=== PATIENT | female | born 1935 | race Caucasian/White ===

== ENCOUNTER 2016-10-21 08:44 | Inpatient (IN) | payer MEDICARE, OTHER ==
[~2016-10-21] VITALS: Ht 172.7 cm; Wt 67.7 kg
--- NOTE | ~2016-10-21 | EKG ---
[place], [place] ELECTROCARDIOGRAM REPORT NAME: NATALIYA DAVALOS UNIT #: [id number] ROOM: 421 DOCTOR: RAFY CONTRERAS MD BIRTHDATE: [birth year] DOS: 10/21/2016 TIME: 09:13 RATE AND RHYTHM: Paced rhythm at 70 beats per minute, TX interval 158 milliseconds, QRS duration 142 milliseconds, corrected QT interval 462 milliseconds, QRS axis -21. IMPRESSION: It is a paced rhythm. No further interpretation. RAFY CONTRERAS MD CM:EKGRPT:ELECTROCARDIOGRAM REPORT 1007 1020 RAFY CONTRERAS MD
--- NOTE | ~2016-10-21 | CON ---
[place], [place] REPORT OF CONSULTATION NAME: NATALIYA DAVALOS UNIT #: [id number] ROOM: 421 DOCTOR: IRENE KEENE [facility],JOSELU[facility] BIRTHDATE: [birth year] DOS: 10/22/2016 IMPRESSION: History of syncope. Pacemaker function is good, and it could be related to the hypotension either orthostatic or otherwise. No extreme tachybradycardia noted and pacemaker function is good and reported The tachycardia is probably related to some of the artifacts seen, but patient is on vasodilators. We may eliminate them and small dose of beta raúl agents would suffice and continue the meds. The patient apparently has dementia. The patient came to the Emergency Room, could not get very detailed history. Patient's amlodipine will be discontinued and cut back on hydrochlorothiazide. Blood pressure 102/56. The patient has a previous history of permanent pacemaker and history of head contusion and hypertension and hypothyroidism. TSH is minimally elevated. Dementia and anxiety. Acute on chronic kidney disease, borderline, stage III. DIAGNOSES: 1. Syncope, etiology unknown, probably related to the hypotension. 2. Pacemaker function is optimal. 3. Hypothyroid considered. Thank you very much for asking me to see the patient and I will follow the patient. JOSELUIS BONILLA MD CM:CONSTR:REPORT OF CONSULTATION 1553 11/02/16 1320 interface
--- NOTE | ~2016-10-21 | WRIGHTHP ---
[place], [place] PATIENT HISTORY AND PHYSICAL EXAM [id number] UN[facility] #: [id number] ROOM: 421 DOCTOR: MARLYN TSAI MD BIRTHDATE: [birth year] DOS: 10/21/2016 The patient admitted to hospital from Emergency Department with TIA. [facility], and she was found somewhat confused and was brought to the Emergency Department where on investigation was found to be having TIA and her CAT scan was done, which was normal. Actually, neck was normal and at the time of my examination, the patient was sitting very comfortably. She was conscious, but she could not tell me the details what happened to her, slightly confused. There was no localized any neurological deficit observed. PHYSICAL EXAMINATION: HEENT: Her pupils are equal, reactive to light and accommodation. Trachea is central. HEART: Regular. CHEST: Clear. ABDOMEN: Soft. VITAL SIGNS: Stable. This is a short note which I gave but detailed history and physical with medication, and other things will be dictated by Dr. Marshall. MARLYN TSAI MD CM:HISPHYS:PATIENT HISTORY AND PHYSICAL EXAMINATION [id number] MARLYN TSAI MD 11/26/16 1418 interface
[~2016-10-21 08:44] MED LIST: AMLODIPINE BESYL5 MG PO; BUSPAR5 MG PO; BYSTOLIC10 MG PO; DIOVAN160 M1 PO; DOXYCYCLINE100 M3 PO; GALANTAMINE HYDR8 MG PO; HYDR25T PO; HYDROCHLOROTHIA25 MG PO; LEVOTHYROXIN0.075 M1 PO; LEVOTHYROXIN0.075 MG PO; LISINOPRIL10 MG; Lopressor25 MG PO; Lovenox40 MG/0.4 SC; METOPROLOL50 MG PO; NAMENDA5 MG PO; NORVASC5 MG PO; PRAVACHOL20 MG PO; PREDNISONE10 MG PO; Synthroid,Levo50 MCG PO; VITAMIN D50000 I3 PO; Vicodin 5/325 PO; XANAX0.5 MG PO; ZOLOFT50 MG PO; [UNRECOGNIZED DRUG - OTHER] PO
[2016-10-21 08:58] VITALS: BP 102/60
[2016-10-21 09:13] LABS: BASO % 0.1 % (0.0-1.0); EOS # 0.1 10*3/uL (0.0-0.4); EOS % 0.8 % (1.0-4.0); HEMATOCRIT 36.7 % (37.0-47.0); HEMOGLOBIN 11.7 g/dl (12.0-16.0); IG # 0.1 10*3/uL (0.0-0.1); LYMPH # 1.4 10*3/uL (1.3-4.4); LYMPH % 15.9 % (27.0-41.0); MEAN CELL VOLUME 90.6 fl (81.0-99.0); MEAN CORPUSCULAR HGB 28.9 pg (27.0-31.0); MEAN CORPUSCULAR HGB CONC 31.9 g/dl (33.0-37.0); MEAN PLATELET VOLUME 9.7 fl (9.6-12.3); MONO # 0.6 10*3/uL (0.1-1.0); MONO % 6.3 % (3.0-9.0); NEUT # 6.9 10*3/uL (2.3-7.9); NEUT % 76.2 % (47.0-73.0); PLATELET COUNT AUTOMATED 220 10*3/uL (130-400); RED BLOOD COUNT 4.05 10*6/uL (4.10-5.10); RED CELL DISTRI WIDTH 16.4 % (0-14.5); WHITE BLOOD COUNT 9.1 10*3/uL (4.8-10.8)
[2016-10-21 09:24] LABS: PROTHROMBIN TIME 10.1 SECONDS (9.0-12.4)
[2016-10-21 09:31] LABS: BILIRUBIN, TOTAL 0.3 mg/dl (0.2-1.0); MAGNESIUM 2.2 mg/dL (1.5-2.1); POTASSIUM 3.6 mmol/L (3.5-5.1); TOTAL PROTEIN 6.2 gm/dL (6.4-8.2); TROPONIN I 0.03 ng/ml (<0.5)
[2016-10-21 11:09] LABS: BILIRUBIN NEGATIVE (NEGATIVE); BLOOD NEGATIVE (NEGATIVE); CLARITY CLEAR (CLEAR); COLOR YELLOW (YELLOW); GLUCOSE NEGATIVE (NEGATIVE); KETONE NEGATIVE (NEGATIVE); LEUKO ESTERASE NEGATIVE (NEGATIVE); NITRITE NEGATIVE (NEGATIVE); PH 5.5 (5.0-9.0); PROTEIN NEGATIVE (NEGATIVE); SPECIFIC GRAVITY 1.015 (1.005-1.030); UROBILINOGEN 0.2 E.U./dl (0.2-1.0)
[2016-10-21 11:17] LABS: HYALINE CAST 21-30; URINE REFLEX COMMENT NO (NO)
[2016-10-21 12:00] VITALS: BP 131/60
[2016-10-21] MEDS ORDERED: ABREVA2 GM TP (12:37)
[2016-10-21 16:00] VITALS: BP 102/83
[2016-10-21 20:00] VITALS: BP 97/62
[2016-10-22] VITALS: BP 113/87
[2016-10-22 07:47] VITALS: BP 102/56
[2016-10-22 12:00] VITALS: BP 128/61
[2016-10-22 16:00] VITALS: BP 92/74
[2016-10-22 20:00] VITALS: BP 135/71
[2016-10-23] VITALS: BP 134/71
[2016-10-23 07:48] LABS: BASO % 0.3 % (0.0-1.0); EOS # 0.2 10*3/uL (0.0-0.4); EOS % 2.9 % (1.0-4.0); HEMATOCRIT 33.6 % (37.0-47.0); HEMOGLOBIN 10.7 g/dl (12.0-16.0); LYMPH # 1.7 10*3/uL (1.3-4.4); LYMPH % 23.8 % (27.0-41.0); MEAN CELL VOLUME 91.1 fl (81.0-99.0); MEAN CORPUSCULAR HGB CONC 31.8 g/dl (33.0-37.0); MEAN PLATELET VOLUME 10.7 fl (9.6-12.3); MONO # 0.6 10*3/uL (0.1-1.0); MONO % 8.8 % (3.0-9.0); NEUT # 4.4 10*3/uL (2.3-7.9); NEUT % 63.6 % (47.0-73.0); PLATELET COUNT AUTOMATED 182 10*3/uL (130-400); RED BLOOD COUNT 3.69 10*6/uL (4.10-5.10); RED CELL DISTRI WIDTH 17.1 % (0-14.5)
[2016-10-23 08:00] VITALS: BP 118/52
[2016-10-23 08:34] LABS: ALBUMIN 2.9 gm/dl (3.1-4.5); BILIRUBIN, TOTAL 0.3 mg/dl (0.2-1.0); TOTAL PROTEIN 6.2 gm/dL (6.4-8.2)
[2016-10-23 12:00] VITALS: BP 112/86
[2016-10-23 16:43] VITALS: BP 117/58
[2016-10-23] MEDS ORDERED: COZAAR50 M1 PO (17:14)
[2016-10-23] MEDS ORDERED: HYDROCHLOROTH12.5 M2 PO (17:14)
[2016-11-05] MEDS ORDERED: DIOVAN160 M2 PO (06:51)
[2016-11-05] MEDS ORDERED: AMLODIPINE BESYL5 MG PO (06:53)
[2016-11-05] MEDS ORDERED: GALANTAMINE8 MG PO (06:54)
[2016-11-05] MEDS ORDERED: HYDR25T PO (10:46)
[2016-11-05] MEDS ORDERED: COZAAR50 M1 PO (15:38)
[2016-11-08] MEDS ORDERED: RISPERDAL0.5 MG PO (12:37)
[2016-11-08] MEDS ORDERED: RISPERDAL0.25 MG PO (13:35)
[2016-11-19] MEDS ORDERED: DIOVAN160 M2 PO (20:37)
[2016-11-19] MEDS ORDERED: HYDR25T PO (20:37)
[2016-11-19] MEDS ORDERED: AMLODIPINE BESYL5 MG PO (20:38)
[2016-11-25] MEDS ORDERED: NAMENDA5 M1 PO (16:04)
[2016-11-28] MEDS ORDERED: DILANTIN50 MG PO (15:21)
[2016-11-28] MEDS ORDERED: PREDNISONE10 MG PO (15:21)
[2016-11-28] MEDS ORDERED: DOXYCYCLINE100 MG PO (15:27)
[2016-12-07] MEDS ORDERED: CYPROHEPTAD2 MG/5 M1 PO (22:34)
[2016-12-07] MEDS ORDERED: ASPIRIN81 M1 PO (22:34)
[2016-12-11] MEDS ORDERED: DIOVAN160 M2 PO (11:03)
[2016-12-11] MEDS ORDERED: DILANTIN100 MG PO (11:03)
[2016-12-11] MEDS ORDERED: MACROBID100 M1 PO (11:26)
== END 2016-10-23 16:35 | disposition home or self-care (01) | DRG 315 ==
LOC: ED 08:44 → 4E 10:55 → EDHOLD 10:55 → 4E 11:17
PROVIDERS: Hospitalist; Student in an Organized Health Care Education/Training Program
DX: I95.9 Hypotension, unspecified (principal); G45.9 Transient cerebral ischemic attack, unspecified; E44.0 Moderate protein-calorie malnutrition; F03.90 Unspecified dementia, unspecified severity, without behavioral disturbance, psychotic disturbance, mood disturbance, and anxiety; I49.5 Sick sinus syndrome; S00.531A Contusion of lip, initial encounter; I12.9 Hypertensive chronic kidney disease with stage 1 through stage 4 chronic kidney disease, or unspecified chronic kidney disease; D63.1 Anemia in chronic kidney disease; J43.9 Emphysema, unspecified; E03.9 Hypothyroidism, unspecified; F41.9 Anxiety disorder, unspecified; E78.5 Hyperlipidemia, unspecified; E55.9 Vitamin D deficiency, unspecified; N18.3 Chronic kidney disease, stage 3 (moderate); Z68.22 Body mass index [BMI] 22.0-22.9, adult; Z87.81 Personal history of (healed) traumatic fracture; Z87.01 Personal history of pneumonia (recurrent); Z95.0 Presence of cardiac pacemaker; Z98.890 Other specified postprocedural states; Z87.891 Personal history of nicotine dependence; Z79.899 Other long term (current) drug therapy; W19.XXXA Unspecified fall, initial encounter; Y93.89 Activity, other specified; Y92.89 Other specified places as the place of occurrence of the external cause; Y99.8 Other external cause status

== ENCOUNTER 2017-03-09 21:04 | Emergency (ER) | payer MEDICARE, OTHER ==
[~2017-03-09] VITALS: Ht 167.6 cm; Wt 81.6 kg
[~2017-03-09 21:04] MED LIST changes: +ABREVA2 GM TP; +ASPIRIN81 M1 PO; +COZAAR50 M1 PO; +CYPROHEPTAD2 MG/5 M1 PO; +DILANTIN100 MG PO; +DILANTIN50 MG PO; +DIOVAN160 M2 PO; +DOXYCYCLINE100 MG PO; +GALANTAMINE8 MG PO; +HYDROCHLOROTH12.5 M2 PO; +MACROBID100 M1 PO; +NAMENDA5 M1 PO; +RISPERDAL0.25 MG PO; +RISPERDAL0.5 MG PO
== END 2017-03-09 23:57 | disposition hospice, home (50) ==
LOC: ED 21:04
DX: S72.001A Fracture of unspecified part of neck of right femur, initial encounter for closed fracture (principal); Z87.891 Personal history of nicotine dependence; Z95.0 Presence of cardiac pacemaker; Z79.82 Long term (current) use of aspirin; Z79.899 Other long term (current) drug therapy; Z86.73 Personal history of transient ischemic attack (TIA), and cerebral infarction without residual deficits; E03.9 Hypothyroidism, unspecified; E78.5 Hyperlipidemia, unspecified; X50.9XXA Other and unspecified overexertion or strenuous movements or postures, initial encounter; Y93.89 Activity, other specified; Y92.9 Unspecified place or not applicable; Y99.9 Unspecified external cause status